=== PATIENT | female | born 1975 | race American Indian/Alaskan Native ===

== ENCOUNTER 2018-07-03 09:30 | Emergency (ER) | payer MEDICAID ==
[2018-07-03 09:44] VITALS: BP 107/66
--- NOTE | 2018-07-03 11:26 | Emergency Department Report ---
Upper Extremity - [facility] Chief Complaint: Extremity Injury, Upper Stated Complaint: R SIDE ARM/HAND PAIN/R WRIST SWOLLEN Time Seen by Provider: 07/03/18 11:08 ED Review of Systems ROS: Stated complaint: R SIDE ARM/HAND PAIN/R WRIST SWOLLEN Other details as noted in HPI ED Past Medical Hx - Past Medical History Hx Psychiatric Treatment: Yes (BIPOLAR; DEPRESSION) Hx Asthma: Yes Additional medical history: Anemia - Surgical History Additional Surgical History: TONSILLECTOMY - Social History Smoking Status: Current Every Day Smoker Substance Use Type: Alcohol - Medications Home Medications: Home Medications Medication Instructions Recorded Confirmed Last Taken Type Quetiapine Fumarate [Seroquel] 150 mg PO QDAY #90 tab 12/12/13 01/13/14 Unknown Rx buPROPion [Wellbutrin] 100 mg PO DAILY #30 tablet 12/12/13 01/13/14 Unknown Rx Ferrous Sulfate [Feosol 325mg] 325 mg PO BID #60 tablet 01/13/14 Unknown Rx Loperamide [Imodium] 2 mg PO Q2HR #10 capsule 01/13/14 Unknown Rx Nicotine [Habitrol] 21 mg TD DAILY 01/17/14 01/17/14 01/15/14 History Albuterol Sulfate [Ventolin HFA] 2 puff IH Q4H PRN #1 hfa.aer.ad 05/07/14 Unknown Rx HYDROcodone/APAP 5-325 [[place] 1 each PO Q6HR PRN #16 tablet 05/07/14 Unknown Rx 5/325] Prednisone [Prednisone 10 mg 10 mg PO .TAPER #1 tab.ds.pk 05/07/14 Unknown Rx (6-Day Pack, 21 Tabs)] Upper Extremity Exam - Exam General: Vital signs noted. No distress. Alert and acting appropriately. ED Course Vital Signs 07/03/18 09:41 Temperature 98.2 F Pulse Rate 86 Respiratory 18 Rate Blood Pressure 107/66 O2 Sat by Pulse 100 Oximetry Critical care attestation.: If time is entered above; I have spent that time in minutes in the direct care of this critically ill patient, excluding procedure time. ED Disposition Condition: Stable Referrals: PRIMARY CARE, [Referring] - 3-5 Days
--- NOTE | 2018-07-03 12:17 | Emergency Department Report ---
ED Extremity Problem HPI - General Chief complaint: Extremity Injury, Upper Stated complaint: R SIDE ARM/HAND PAIN/R WRIST SWOLLEN Time Seen by Provider: 07/03/18 11:08 Source: patient Mode of arrival: Ambulatory Limitations: No Limitations - History of Present Illness Initial comments: 43-year-old female with right shoulder pain radiating down to right wrist since this morning. Patient reports swelling to right wrist. Also reports associated tingling sensation. Pain worse with movement of the shoulder. Patient denies trauma, denies neck pain. MD Complaint: extremity pain -: This morning Location: right, upper extremity History of Same: No Radiation: distal Quality: aching, sharp Consistency: constant Improves with: immobilization Worsens with: palpation, other (movement) Associated Symptoms: denies: chest pain, shortness of breath, fever - Related Data Home Medications Medication Instructions Recorded Confirmed Last Taken Nicotine [Habitrol] 21 mg TD DAILY 01/17/14 01/17/14 01/15/14 Previous Rx's Medication Instructions Recorded Last Taken Type Quetiapine Fumarate [Seroquel] 150 mg PO QDAY #90 tab 12/12/13 Unknown Rx buPROPion [Wellbutrin] 100 mg PO DAILY #30 tablet 12/12/13 Unknown Rx Ferrous Sulfate [Feosol 325mg] 325 mg PO BID #60 tablet 01/13/14 Unknown Rx Loperamide [Imodium] 2 mg PO Q2HR #10 capsule 01/13/14 Unknown Rx Albuterol Sulfate [Ventolin HFA] 2 puff IH Q4H PRN #1 hfa.aer.ad 05/07/14 Unknown Rx HYDROcodone/APAP 5-325 [[place] 1 each PO Q6HR PRN #16 tablet 05/07/14 Unknown Rx 5/325] Prednisone [Prednisone 10 mg 10 mg PO .TAPER #1 tab.ds.pk 05/07/14 Unknown Rx (6-Day Pack, 21 Tabs)] Naproxen [Naprosyn] 500 mg PO BID #20 tablet 07/03/18 Unknown Rx methOCARBAMOL [Robaxin TAB] 500 mg PO Q8HR PRN #20 tablet 07/03/18 Unknown Rx predniSONE [Deltasone] 50 mg PO QDAY #5 tab 07/03/18 Unknown Rx Allergies Allergy/AdvReac Type Severity Reaction Status Date / Time iodine Allergy Swelling Verified 07/03/18 09:32 latex Allergy Unknown Verified 07/03/18 09:32 Penicillins Allergy Swelling Verified 07/03/18 09:32 shellfish derived Allergy Swelling Verified 07/03/18 09:32 ED Review of Systems ROS: Stated complaint: R SIDE ARM/HAND PAIN/R WRIST SWOLLEN Other details as noted in HPI Comment: All other systems reviewed and negative Constitutional: denies: chills, fever Respiratory: denies: shortness of breath Cardiovascular: denies: chest pain Musculoskeletal: as per HPI Neurological: paresthesias ED Past Medical Hx - Past Medical History Hx Psychiatric Treatment: Yes (BIPOLAR; DEPRESSION) Hx Asthma: Yes Additional medical history: Anemia - Surgical History Additional Surgical History: TONSILLECTOMY - Social History Smoking Status: Current Every Day Smoker Substance Use Type: Alcohol - Medications Home Medications: Home Medications Medication Instructions Recorded Confirmed Last Taken Type Quetiapine Fumarate [Seroquel] 150 mg PO QDAY #90 tab 12/12/13 01/13/14 Unknown Rx buPROPion [Wellbutrin] 100 mg PO DAILY #30 tablet 12/12/13 01/13/14 Unknown Rx Ferrous Sulfate [Feosol 325mg] 325 mg PO BID #60 tablet 01/13/14 Unknown Rx Loperamide [Imodium] 2 mg PO Q2HR #10 capsule 01/13/14 Unknown Rx Nicotine [Habitrol] 21 mg TD DAILY 01/17/14 01/17/14 01/15/14 History Albuterol Sulfate [Ventolin HFA] 2 puff IH Q4H PRN #1 hfa.aer.ad 05/07/14 Unknown Rx HYDROcodone/APAP 5-325 [[place] 1 each PO Q6HR PRN #16 tablet 05/07/14 Unknown Rx 5/325] Prednisone [Prednisone 10 mg 10 mg PO .TAPER #1 tab.ds.pk 05/07/14 Unknown Rx (6-Day Pack, 21 Tabs)] Naproxen [Naprosyn] 500 mg PO BID #20 tablet 07/03/18 Unknown Rx methOCARBAMOL [Robaxin TAB] 500 mg PO Q8HR PRN #20 tablet 07/03/18 Unknown Rx predniSONE [Deltasone] 50 mg PO QDAY #5 tab 07/03/18 Unknown Rx ED Physical Exam - General Limitations: No Limitations General appearance: alert, in no apparent distress - Head Head exam: Present: atraumatic, normocephalic - Eye Eye exam: Present: normal appearance - ENT ENT exam: Present: mucous membranes moist - Neck Neck exam: Present: normal inspection, full ROM. Absent: tenderness - Respiratory Respiratory exam: Present: normal lung sounds bilaterally. Absent: respiratory distress - Cardiovascular Cardiovascular Exam: Present: regular rate, normal rhythm - GI/Abdominal GI/Abdominal exam: Absent: distended - Extremities Exam Extremities exam: Present: other (mild tenderness to right shoulder; no swelling noted; strength 5/5 in right upper extremity, sensation grossly intact) - Neurological Exam Neurological exam: Present: alert, oriented X3. Absent: motor sensory deficit - Psychiatric Psychiatric exam: Present: normal affect, normal mood - Skin Skin exam: Present: warm, dry, intact, normal color ED Course Vital Signs 07/03/18 09:41 Temperature 98.2 F Pulse Rate 86 Respiratory 18 Rate Blood Pressure 107/66 O2 Sat by Pulse 100 Oximetry Critical care attestation.: If time is entered above; I have spent that time in minutes in the direct care of this critically ill patient, excluding procedure time. ED Disposition Clinical Impression: Cervical radiculopathy Disposition: DC- TO HOME OR SELFCARE Is pt being admited?: No Condition: Stable Instructions: Cervical Radiculopathy (ED) Prescriptions: predniSONE [Deltasone] 50 mg PO QDAY #5 tab Naproxen [Naprosyn] 500 mg PO BID #20 tablet methOCARBAMOL [Robaxin TAB] 500 mg PO Q8HR PRN #20 tablet PRN Reason: Muscle Spasm Referrals: DAYANA DAMON MD [Staff Physician] - 3-5 Days Time of Disposition: 12:15
== END 2018-07-03 12:32 | disposition home or self-care (01) ==
LOC: ED 09:30
DX: M54.12 Radiculopathy, cervical region (principal); J45.909 Unspecified asthma, uncomplicated; F17.200 Nicotine dependence, unspecified, uncomplicated; Z88.8 Allergy status to other drugs, medicaments and biological substances; Z91.040 Latex allergy status; Z91.013 Allergy to seafood
CPT/HCPCS: 99282

== ENCOUNTER 2019-02-28 01:26 | Emergency (ER) | payer MEDICAID ==
[2019-02-28 02:26] LABS: Bilirubin,Urine NEG (Negative); Blood,Urine MOD (Negative); Color,Urine Yellow (Yellow); Mucus,Urine FEW /HPF; Urobilinogen,Urine < 2.0 mg/dL (<2.0)
[2019-02-28 02:37] LABS: WBC,Urine > 182.0 /HPF (0.0-6.0)
[2019-02-28 02:38] LABS: HCG Qualitative,Urine Negative (Negative)
--- NOTE | 2019-02-28 02:52 | Emergency Department Report ---
ED Female HPI - General Chief complaint: Urogenital-Female Stated complaint: PAINFUL TO URINATE Source: patient Mode of arrival: Ambulatory Limitations: No Limitations - History of Present Illness Initial comments: 43-year-old -[place] female presents to the emergency room for urinary urgency and frequency 4 days. Patient does admit to some dysuria. Patient denies any fever chills no abdominal pain or nausea no vomiting. She does admit to urinary incontinence. Complaint: dysuria Onset/Timin -: days(s) Severity: moderate Consistency: constant Improves with: none Worsens with: urination Are you Now?: No Last Menstrual Period: 02/14/19 EDC: 11/21/19 Associated Symptoms: denies other symptoms - Related Data Home Medications Medication Instructions Recorded Confirmed Last Taken Nicotine [Habitrol] 21 mg TD DAILY 01/17/14 01/17/14 01/15/14 Previous Rx's Medication Instructions Recorded Last Taken Type Quetiapine Fumarate [Seroquel] 150 mg PO QDAY #90 tab 12/12/13 Unknown Rx buPROPion [Wellbutrin] 100 mg PO DAILY #30 tablet 12/12/13 Unknown Rx Ferrous Sulfate [Feosol 325mg] 325 mg PO BID #60 tablet 01/13/14 Unknown Rx Loperamide [Imodium] 2 mg PO Q2HR #10 capsule 01/13/14 Unknown Rx Albuterol Sulfate [Ventolin HFA] 2 puff IH Q4H PRN #1 hfa.aer.ad 05/07/14 Unknown Rx HYDROcodone/APAP 5-325 [[place] 1 each PO Q6HR PRN #16 tablet 05/07/14 Unknown Rx 5/325] Prednisone [Prednisone 10 mg 10 mg PO .TAPER #1 tab.ds.pk 05/07/14 Unknown Rx (6-Day Pack, 21 Tabs)] Naproxen [Naprosyn] 500 mg PO BID #20 tablet 07/03/18 Unknown Rx methOCARBAMOL [Robaxin TAB] 500 mg PO Q8HR PRN #20 tablet 07/03/18 Unknown Rx predniSONE [Deltasone] 50 mg PO QDAY #5 tab 07/03/18 Unknown Rx Nitrofurantoin [place]/M-[place] 100 mg PO Q12HR 10 Days #20 capsule 02/28/19 Unknown Rx [Macrobid CAP] Phenazopyridine [Pyridium] 100 mg PO TID #6 tab 02/28/19 Unknown Rx Allergies Allergy/AdvReac Type Severity Reaction Status Date / Time iodine Allergy Swelling Verified 07/03/18 09:32 latex Allergy Unknown Verified 07/03/18 09:32 Penicillins Allergy Swelling Verified 07/03/18 09:32 shellfish derived Allergy Swelling Verified 07/03/18 09:32 ED Review of Systems ROS: Stated complaint: PAINFUL TO URINATE Other details as noted in HPI Comment: All other systems reviewed and negative ED Past Medical Hx - Past Medical History Previous Medical History?: Yes Hx Psychiatric Treatment: Yes (BIPOLAR; DEPRESSION) Hx Asthma: Yes Additional medical history: Anemia - Surgical History Past Surgical History?: Yes Additional Surgical History: TONSILLECTOMY - Social History Smoking Status: Never Smoker Substance Use Type: None - Medications Home Medications: Home Medications Medication Instructions Recorded Confirmed Last Taken Type Quetiapine Fumarate [Seroquel] 150 mg PO QDAY #90 tab 12/12/13 01/13/14 Unknown Rx buPROPion [Wellbutrin] 100 mg PO DAILY #30 tablet 12/12/13 01/13/14 Unknown Rx Ferrous Sulfate [Feosol 325mg] 325 mg PO BID #60 tablet 01/13/14 Unknown Rx Loperamide [Imodium] 2 mg PO Q2HR #10 capsule 01/13/14 Unknown Rx Nicotine [Habitrol] 21 mg TD DAILY 01/17/14 01/17/14 01/15/14 History Albuterol Sulfate [Ventolin HFA] 2 puff IH Q4H PRN #1 hfa.aer.ad 05/07/14 Unknown Rx HYDROcodone/APAP 5-325 [[place] 1 each PO Q6HR PRN #16 tablet 05/07/14 Unknown Rx 5/325] Prednisone [Prednisone 10 mg 10 mg PO .TAPER #1 tab.ds.pk 05/07/14 Unknown Rx (6-Day Pack, 21 Tabs)] Naproxen [Naprosyn] 500 mg PO BID #20 tablet 07/03/18 Unknown Rx methOCARBAMOL [Robaxin TAB] 500 mg PO Q8HR PRN #20 tablet 07/03/18 Unknown Rx predniSONE [Deltasone] 50 mg PO QDAY #5 tab 07/03/18 Unknown Rx Nitrofurantoin [place]/M-[place] 100 mg PO Q12HR 10 Days #20 capsule 02/28/19 Unknown Rx [Macrobid CAP] Phenazopyridine [Pyridium] 100 mg PO TID #6 tab 02/28/19 Unknown Rx ED Physical Exam - General Limitations: No Limitations General appearance: alert, in no apparent distress - Head Head exam: Present: atraumatic, normocephalic - Eye Eye exam: Present: normal appearance - ENT ENT exam: Present: mucous membranes moist - GI/Abdominal GI/Abdominal exam: Present: soft. Absent: distended, tenderness, guarding - Back Exam Back exam: Present: normal inspection - Neurological Exam Neurological exam: Present: alert, oriented X3, normal gait - Psychiatric Psychiatric exam: Present: normal affect, normal mood - Skin Skin exam: Present: warm, dry, intact, normal color. Absent: rash ED Medical Decision Making - Medical Decision Making 43-year-old -[place] female presents to the emergency room for urinary urgency and frequency 4 days. Patient does admit to some dysuria. Patient denies any fever chills no abdominal pain or nausea no vomiting. She does admit to urinary incontinence. H and has a urinary tract infection. Patient placed on Macrobid 100mg bid and pyridine Critical care attestation.: If time is entered above; I have spent that time in minutes in the direct care of this critically ill patient, excluding procedure time. ED Disposition Clinical Impression: UTI (urinary tract infection) Disposition: TO HOME OR SELFCARE Is pt being admited?: No Does the pt Need Aspirin: No Condition: Stable Instructions: Urinary Tract Infection in Women (ED), Phenazopyridine (By mouth) Additional Instructions: Take medication as prescribed. Increase clear fluid intake. Be sure to void after intercourse. If her symptoms persists follow up with your primary care provider. Prescriptions: Nitrofurantoin [place]/M-Cryst [Macrobid CAP] 100 mg PO Q12HR 10 Days #20 capsule Phenazopyridine [Pyridium] 100 mg PO TID #6 tab Forms: Work/School Release Form(ED)
[2019-02-28 02:54] VITALS: BP 108/68
== END 2019-02-28 03:00 | disposition home or self-care (01) ==
LOC: ED 01:26
DX: N39.0 Urinary tract infection, site not specified (principal); F31.9 Bipolar disorder, unspecified; J45.909 Unspecified asthma, uncomplicated; Z86.2 Personal history of diseases of the blood and blood-forming organs and certain disorders involving the immune mechanism; Z90.89 Acquired absence of other organs; Z79.899 Other long term (current) drug therapy; Z91.09 Other allergy status, other than to drugs and biological substances; Z91.040 Latex allergy status; Z91.013 Allergy to seafood; Z88.0 Allergy status to penicillin
CPT/HCPCS: 81001; 81025